=== PATIENT | male | born 1990 ===

== ENCOUNTER 2020-04-10 22:48 | Emergency (ER) | payer SELFPAY ==
[~2020-04-10] VITALS: Ht 185.4 cm; Wt 108.0 kg
[2020-04-10 23:05] VITALS: BP 155/96
--- NOTE | 2020-04-10 23:25 | NUR ---
PT NOT IN LOBBY WHEN CALLED FOR ROOM.
--- NOTE | 2020-04-10 23:35 | NUR ---
PT NOT IN LOBBY WHEN CALLED FOR ROOM.
--- NOTE | 2020-04-10 23:52 | NUR ---
PT NOT IN LOBBY WHEN CALLED FOR ROOM. LWBS.
== END 2020-04-10 23:54 | disposition left against medical advice (07) ==
LOC: ED 22:58
DX: M79.89 Other specified soft tissue disorders (principal); Z53.21 Procedure and treatment not carried out due to patient leaving prior to being seen by health care provider